=== PATIENT | male | born 1955 | race American Indian/Alaskan Native ===

== ENCOUNTER 2017-05-29 06:24 | Day surgery (SDC) | payer BC ==
[2017-04-27 13:11] VITALS: BMI 28.5
[2017-05-29] MEDS ORDERED: Phenylephrine 10 mg/ml Inj ONE (07:32)
[2017-05-29] MEDS ORDERED: Lidocaine 2% Inj (20ml) ONE (07:32)
[2017-05-29] MEDS ORDERED: Iohexol 350mgl/ml 50 ML ONE (07:33)
[2017-05-29] MEDS ORDERED: HEPARIN SODIUM/NS 2,000 ML IV ONE (07:33)
[2017-05-29] MEDS ORDERED: Iohexol 350 MG/100 ML VIAL ONE (07:33)
[2017-05-29] MEDS ORDERED: Nitroglycerin 50mg in D5W 50 MG/250 ML BOTTLE IV ONE (07:33)
[2017-05-29 07:38] LABS: BASO # 0.04 [, K/mm3] (0.0-2.0); BASO % 0.7 % (0.0-3.0); EOS # 0.3 (0.0-0.7); EOS % 5.8 % (1.5-5.0); GRAN # 3.07 (1.4-6.5); GRAN % 55.4 % (50.0-68.0); HEMOGLOBIN 13.1 g/dL (14.0-18.0); LYMPH # 1.7 (1.2-3.4); MEAN CELL VOLUME 85.9 fl (80.0-105.0); MEAN CORPUSCULAR HEMOGLOBIN 27.2 pg (25.0-35.0); MEAN CORPUSCULAR HGB CONC 31.6 g/dl (31.0-37.0); MEAN PLATELET VOLUME 11.3 fl (7.0-11.0); MONO # 0.5 (0.1-0.6); MONO % 8.1 % (1.0-6.0); RBC 4.82 [, 10^6/uL] (3.5-6.1); RED CELL DISTRIBUTION WIDTH 13.7 % (11.5-14.5); WHITE BLOOD COUNT 5.5 [, 10^3/ul] (4.5-11.0)
[2017-05-29] MEDS ORDERED: Midazolam 2 MG/2 ML VIAL ONE (07:48)
[2017-05-29 07:52] LABS: INR 1.08 (0.93-1.08); PARTIAL THROMBOPLASTIN TIME 33.6 Seconds (25.1-36.5); PROTHROMBIN TIME 12.4 SECONDS (9.4-12.5)
[2017-05-29 08:00] LABS: BLOOD UREA NITROGEN 12 mg/dL (7-21); CALCIUM 9.3 mg/dL (8.4-10.5); GFR AFRICAN-AMERICAN > 60; GFR NON-AFRICAN AMERICAN > 60; HDL CHOLESTEROL 43 mg/dL (29-60)
[2017-05-29 08:11] LABS: LDL CHOLESTEROL 88 mg/dL (0-129)
--- NOTE | 2017-05-29 08:18 | HP ---
REASON FOR ADMISSION: Left heart cath, possible angioplasty, abnormal stress test. BRIEF CLINICAL HISTORY: This is a 61-year-old male with a past medical history of coronary artery disease, status post stent in 2007, diabetes, hypertension, hyperlipidemia who had an abnormal stress test. The patient is scheduled for elective cardiac catheterization, possible angioplasty and patient was complaining of chest pain. PAST MEDICAL HISTORY: Significant for diabetes, hypertension, hyperlipidemia, coronary artery disease, status post stent in 2007. SOCIAL HISTORY: Denies smoking. Denies any history of alcohol abuse. CURRENT CARDIAC WORKUP: As follows: The patient had an echocardiography on 04/27/2017 that showed borderline concentric LV ejection fraction 60% to 65%, trace to mild aortic regurgitation, moderate mitral regurgitation, mild tricuspid regurgitation, systolic pressure of 38, RV systolic pressure mild at 38. A stress test, probably abnormal PET myocardial perfusion study, partially reversible anteroseptal defect suggestive of ischemia, ejection fraction 61%, fixed inferior defect secondary to diaphragmatic attenuation. CURRENT MEDICATIONS: The patient is taking Xalatan, Amaryl, Glucophage 1 gm twice daily, Losartan 25 mg daily, aspirin 81 mg daily, amlodipine 10 mg daily, simvastatin 20 mg daily. ALLERGIES: ALLERGY TO PENICILLIN. REVIEW OF SYSTEMS: As per HPI. PHYSICAL EXAMINATION: As follows: VITAL SIGNS: Height of the patient is 6 feet 2 inches. Weight of the patient is 210 pounds. Body mass index is 28.5 kg/sq m. Heart rate 68, blood pressure 130/80. HEENT: PERRLA. Extraocular muscles intact. NECK: Supple. No carotid bruit or thyromegaly. CHEST: Clear to auscultation. HEART: S1 and S2, regular. ABDOMEN: Soft. EXTREMITIES: Clubbing and cyanosis negative. LABORATORY DATA: Blood workup pending. IMPRESSION: Abnormal stress test, diabetes, hypertension, hyperlipidemia, coronary artery disease, status post stent in 2007. Stress test is abnormal anteroseptal apical ischemia. RECOMMENDATION: We will lower the aspirin, Plavix. Risks, benefits and alternatives explained to the patient. The patient agreed. We will proceed with cardiac catheterization. We will wait for the blood workup. Once the blood workup is available, we will proceed for cardiac catheterization. Thank you Dr. Cancino for providing us the opportunity in taking care of the [facility]. Emanuel Melgar MD cc: MD Dr. Teodoro Morel
[2017-05-29] MEDS ORDERED: Bacitracin 500 Units/gm Oint Foilpak UD TOP ONE (08:38)
[2017-05-29] MEDS ORDERED: Sodium Chloride 0.9% 1,000 ML IV SCH (08:45)
[2017-05-29 09:14] VITALS: RESP 20; TEMP 98.1
[2017-05-29 10:46] VITALS: O2SAT 97
[2017-05-29 11:16] VITALS: BP 148/92; PULSE 65
[2017-05-29] MEDS ORDERED: Bacitracin 500 Units/gm Oint Foilpak UD ONE (11:51)
--- NOTE | 2017-05-29 16:44 | CARD ---
APPROVED REPORT EKG Measurement Heart [id number] <Conclusion> Normal sinus rhythm Normal ECG
--- NOTE | 2017-05-29 19:00 | CARD ---
APPROVED REPORT Procedure(s) performed: Left Heart Catheterization HISTORY The patient is a 61 year-old male with a history of : most recent EF: 61%. (EF Method: RADIONUCLIDE), diabetes mellitus with oral treatment , previous diagnostic cath, tobacco history() : The patient is a former smoker , previous PCI (The PCI date was 05/08/2007), hypertension , dyslipidemia , Possibly eloy septal ischemia.. INDICATION The indication(s) include : positive stress test, dyspnea. CASE TECHNIQUE The patient was brought electively to the Cardiac Catheterization Laboratory in a fasting state and was prepped and draped in a sterile manner. The left wrist was infiltrated with 2% Lidocaine subcutaneous anesthesia. A 6FR GLIDESHEATH ACCESS KIT sheath was inserted into the left radial artery without difficulty. Coronary angiography was performed using coronary diagnostic catheters. The left coronary system was accessed and visualized with a Diagnostic ,5 Fr JL 4 catheter. The right coronary system was accessed and visualized with a Diagnostic ,5 Fr JR 4 catheter. The left ventricle was accessed and visualized with a 5 Fr Pigtail 145 (Angled) catheter. Left ventricular/Aortic Valve gradient assessed on pullback. Left ventriculogram was performed in SILVEIRA projection. Closure device was deployed with a Fr TR Band (Regular) without any complications. The patient tolerated the procedure well and there were no complications associated with the procedure. Vessel Analysis The patient's coronary anatomy is co-dominant. The left main coronary artery is a medium size vessel with diffuse calcification noted throughout this vessel and without significant stenosis. The left main bifurcates to the left anterior descending and circumflex. The left anterior descending artery is a medium size vessel with diffuse calcification noted throughout this vessel and without significant stenosis. The first diagonal branch is a small size vessel with diffuse calcification noted throughout this vessel and without significant stenosis. There is a 60% stenosis in the proximal segment. The circumflex artery is a medium size vessel with diffuse calcification noted throughout this vessel and without significant stenosis. The first obtuse marginal branch is a medium size vessel with diffuse calcification noted throughout this vessel and without significant stenosis. The second obtuse marginal branch is a medium size vessel with diffuse calcification noted throughout this vessel and without significant stenosis. The third obtuse marginal branch is a medium size vessel with diffuse calcification noted throughout this vessel and without significant stenosis. The left posterior descending artery is a small size vessel with diffuse calcification noted throughout this vessel and without significant stenosis. The right coronary artery is a medium size vessel with diffuse calcification noted throughout this vessel and without significant stenosis. patent stent in mid segment distal to stent 40% stenosis There is a 40% stenosis in the mid segment. dital to stent The right posterior descending artery is a large size vessel with diffuse calcification noted throughout this vessel and without significant stenosis. The right posterolateral branch is a medium size vessel with diffuse calcification noted throughout this vessel and without significant stenosis. Left Ventricle The left ventricle is normal in size with normal contractility. There was no cardiomyopathy. The left ventricular ejection fraction is estimated to be 55-60%. The left ventricular end diastolic pressure is 18-20 mmHg. Conclusion Patent stent in Mid RCA and Cx Moderate Diz in D1 60-% small vessel preserved Lv Fx, EF-55-60%, EDp-18-20 Recommendations Aggressive Medical TherapyCardiac Risk Reduction Program CC; Evelyn/ Joel Cancino/ Teodoro.
== END 2017-05-29 12:56 | disposition home or self-care (01) ==
LOC: CATH 06:24
PROVIDERS: ATTEND Internal Medicine Cardiovascular Disease
DX: I25.10 Atherosclerotic heart disease of native coronary artery without angina pectoris (principal); I10 Essential (primary) hypertension; E11.9 Type 2 diabetes mellitus without complications; E78.5 Hyperlipidemia, unspecified; R94.39 Abnormal result of other cardiovascular function study; Z87.891 Personal history of nicotine dependence; Z95.5 Presence of coronary angioplasty implant and graft; Z88.0 Allergy status to penicillin; Z79.84 Long term (current) use of oral hypoglycemic drugs
CPT/HCPCS: 36415; 80048; 80061; 85025; 85610; 85730; 86850; 86900; 93005; 93458; 99152; C1769; C1887 ×2; J1644 ×2; J2250; J3010; J7040 ×2; Q9967

== ENCOUNTER 2018-08-27 07:44 | Outpatient (CLI) | payer BC | END 2018-08-27 07:45 | disposition home or self-care (01) | LOC: CARDIO 07:44 | DX: E11.9 Type 2 diabetes mellitus without complications (principal); I25.10 Atherosclerotic heart disease of native coronary artery without angina pectoris; R07.89 Other chest pain ==